=== PATIENT | male | born 1945 | race Hispanic/Latino ===

== ENCOUNTER → 2018-08-08 | Outpatient (CLI) | payer OTHER ==
[~2018-08-08] MED LIST: AEC81 PO; CHOL200013 PO; CLOP75TA14 PO; GABA-529 PO; GLIP5TAB11 PO; IOHEXOL-350 75 ML VIAL IV ONE; METF-444 PO; NAPR-1023 PO; SIMV20TA6 PO
== END | disposition home or self-care (01) ==
LOC: RAH 09:21
PROVIDERS: ATTEND Internal Medicine Cardiovascular Disease
DX: I65.23 Occlusion and stenosis of bilateral carotid arteries (principal)
CPT/HCPCS: 70498; Q9967

== ENCOUNTER 2018-09-13 05:55 | Inpatient (IN) | payer OTHER | END 2018-09-16 21:40 | disposition home or self-care (01) | LOC: DAHIP 05:55 → 2DH 09-15 19:27 → 2CH 10:06 | PROC: B3161ZZ Fluoroscopy of Right Internal Carotid Artery using Low Osmolar Contrast (ICD-10-PCS; principal; 2018-09-13) | PROC: 037K3DZ Dilation of Right Internal Carotid Artery with Intraluminal Device, Percutaneous Approach (ICD-10-PCS; 2018-09-13) | DX: I65.21 Occlusion and stenosis of right carotid artery (principal); I70.1 Atherosclerosis of renal artery ==

== ENCOUNTER → 2020-04-01 | Outpatient (CLI) | payer OTHER ==
[~2020-04-01] MED LIST changes: +ALBU8.5H8 IH; +CEFUROXIME SODIUM 1.5 GM VIAL IVP SCH; +CHOL100040 PO; -CHOL200013 PO; +CLON0.1T PO; -GLIP5TAB11 PO; -IOHEXOL-350 75 ML VIAL IV ONE; +LISI1TAB51 PO; -METF-444 PO; +SIMV-43 PO; -SIMV20TA6 PO
[2020-04-01 10:56] LABS: HEMATOCRIT 41.7 % (42-54); MEAN CORPUSCULAR HEMOGLOBIN 28.5 pg (27.0-33.0); MEAN CORPUSCULAR HGB CONC 31.4 g/dL (32.0-36.0); MEAN CORPUSCULAR VOLUME 90.8 fL (79-99); PLATELET COUNT (AUTO) 253 K/uL (130-400); RED BLOOD CELL COUNT(AUTO) 4.59 MIL/uL (4.50-6.20); RED CELL DISTRIBUTION WIDTH 12.6 % (11.0-15.5); WHITE BLOOD COUNT (AUTO) 6.3 K/uL (4.8-10.8)
[2020-04-01 11:09] LABS: INR 1.02 (0.85-1.15); PROTHROMBIN TIME 10.9 SEC (9.6-11.6)
[2020-04-01 11:10] LABS: CREATININE 1.5 mg/dL (0.5-1.5); POTASSIUM 4.9 mmol/L (3.5-5.1)
[2020-04-01 11:11] LABS: PARTIAL THROMBOPLASTIN TIME 26.6 SEC (26.3-35.5)
[2020-04-01 11:55] LABS: BASOPHILS % (MANUAL) 1 % (0-2); EOSINOPHILS % (MANUAL) 2 % (1-6); LYMPHOCYTES % (MANUAL) 33 % (22-44); MAN.DIFF COMMENT-IMPRESSION MANUAL DIFFERENTIAL; MONOCYTES % (MANUAL) 3 % (2-9); PLATELET MORPHOLOGY COMMENT ADEQUATE; SEGMENTED NEUTROPHILS % 61 % (40-70)
== END | disposition home or self-care (01) ==
LOC: EDSTATUS 03-25 12:00 → DAH 10:00 → EDSTATUS 04-03 12:00
PROVIDERS: ATTEND Thoracic Surgery (Cardiothoracic Vascular Surgery)
DX: Z01.812 Encounter for preprocedural laboratory examination (principal); I65.22 Occlusion and stenosis of left carotid artery; Z20.828 Contact with and (suspected) exposure to other viral communicable diseases
CPT/HCPCS: 36415; 71045; 80048; 85025; 85610; 85730; 93005; A6260; U0003

== ENCOUNTER → 2020-08-02 | Outpatient (CLI) | payer OTHER ==
[~2020-08-02] VITALS: Ht 175.3 cm; Wt 120.7 kg
[~2020-08-02] MED LIST changes: -CEFUROXIME SODIUM 1.5 GM VIAL IVP SCH; +REGADENOSON 0.4 MG/5 ML PF SYG IVP SCH
== END | disposition home or self-care (01) ==
LOC: SHCH 07:47
PROVIDERS: ATTEND Internal Medicine Cardiovascular Disease
DX: I25.10 Atherosclerotic heart disease of native coronary artery without angina pectoris (principal); I65.22 Occlusion and stenosis of left carotid artery
CPT/HCPCS: 78452; 93017; 96374; A9500 ×2

== ENCOUNTER 2020-11-25 05:55 | Inpatient (IN) | payer OTHER ==
[2020-11-21 12:06] LABS: BASOPHILS % (AUTO) 0.4 % (0.0-5.0); EOSINOPHILS % (AUTO) 1.5 % (0.0-8.0); HEMATOCRIT 43.1 % (42-54); LYMPHOCYTES % (AUTO) 20.1 % (21.0-51.0); MEAN CORPUSCULAR HEMOGLOBIN 28.9 pg (27.0-33.0); MEAN CORPUSCULAR VOLUME 90.4 fL (79-99); MONOCYTES % (AUTO) 7.7 % (3.0-13.0); PLATELET COUNT (AUTO) 232 K/uL (130-400); RED BLOOD CELL COUNT(AUTO) 4.77 MIL/uL (4.50-6.20); WHITE BLOOD COUNT (AUTO) 6.9 K/uL (4.8-10.8)
[2020-11-21 12:15] LABS: APPEARANCE,URINE Clear (CLEAR); BILIRUBIN,URINE Negative (NEGATIVE); COLOR,URINE Yellow (YELLOW); GLUCOSE, URINE (UA) TRACE mg/dL (NEGATIVE); KETONES,URINE Negative (NEGATIVE); LEUKOCYTE ESTERASE ,URINE Negative (NEGATIVE); NITRATE,URINE Negative (NEGATIVE); OCCULT BLOOD,URINE Negative (NEGATIVE); PH,URINE 5.5 (5.0-8.0); PROTEIN,URINE 300 mg/dL (NEGATIVE)
[2020-11-21 12:17] LABS: CREATININE 1.5 mg/dL (0.5-1.5); INR 0.95 (0.85-1.15); POTASSIUM 5.5 mmol/L (3.5-5.1); PROTHROMBIN TIME 10.4 SEC (9.6-11.6)
[2020-11-21 12:18] LABS: PARTIAL THROMBOPLASTIN TIME 26.2 SEC (26.3-35.5)
[2020-11-21 12:27] LABS: BACTERIA,URINE None Seen /HPF (None Seen); RBC,URINE 0-1 /HPF (0-1); SQUAMOUS EPITHELIAL CELL,UR 0-2 /HPF (0-2); WBC,URINE 0-1 /HPF (0-1)
[2020-11-22 14:17] VITALS: BP 185/77
[~2020-11-25] VITALS: Ht 172.7 cm; Wt 119.0 kg
[2020-11-25] VITALS (11 sets, daily range): BP systolic 151–190; BP diastolic 62–93
[~2020-11-25 05:55] MED LIST changes: +0.9% NACL 500ML IV.SOLN 500 ML IV SCH; +ACETAMINOPHEN 325 MG TAB PO PRN; -ALBU8.5H8 IH; -CHOL100040 PO; -GABA-529 PO; +GABA300C PO; +LIRA0.6P SQ; +LISI10TA24 PO; -LISI1TAB51 PO; +METO-408 PO; -NAPR-1023 PO; -REGADENOSON 0.4 MG/5 ML PF SYG IVP SCH; -SIMV-43 PO; +SIMV10TA97 PO; +UMEC1DIS IH
[2020-11-25] MEDS ORDERED: 0.9%NACL 1000ML 1,000 ML IV ONE (09:28)
[2020-11-25 09:41] LABS: CREATININE 1.1 mg/dL (0.5-1.5); POTASSIUM 5.6 mmol/L (3.5-5.1)
[2020-11-25] MEDS ORDERED: SODIUM BICARB 50MEQ 50ML VIAL 50 ML ONE (12:01)
[2020-11-25] MEDS ORDERED: MEPERIDINE-PF 25 MG/ML SYG ONE (12:01)
[2020-11-25] MEDS ORDERED: MIDAZOLAM HCL 1 MG/ML 2ML VIAL ONE (12:01)
[2020-11-25] MEDS ORDERED: IOHEXOL 350 MG/ML 100ML INFUS..BTL IV ONE (12:01)
[2020-11-25] MEDS ORDERED: NITROGLYCERIN 2 MG VIAL IV ONE (12:01)
[2020-11-25] MEDS ORDERED: HEPARIN 10,000 UNIT/10ML (1,000 UNIT/ML) VIAL ONE (12:01)
[2020-11-25] MEDS ORDERED: IOHEXOL-350 50ML VIAL IV ONE ×2 (12:01→12:58)
[2020-11-25] MEDS ORDERED: LIDOCAINE HCL 400MG/20ML VIAL ONE (12:02)
[2020-11-25] MEDS ORDERED: NICARDIPINE 25MG INJ IV ONE (12:25)
[2020-11-25] MEDS ORDERED: 0.9%NACL 1000ML 1,000 ML IV SCH (13:30)
[2020-11-25] MEDS ORDERED: GLUCAGON 1MG KIT 1 MG ML IM PRN ×2 (13:30→16:30)
[2020-11-25] MEDS ORDERED: DEXTROSE 50%-WATER 50 ML DISP.SYRIN IV PRN ×2 (13:30→16:30)
[2020-11-25] MEDS ORDERED: LIDOCAINE HCL-MPF 1% 2ML VIAL IV PRN (16:30)
[2020-11-25] MEDS ORDERED: INSULIN HUMULIN R 100 UNIT/ML 3ML SQ SCH (16:30)
[2020-11-25] MEDS ORDERED: POTASSIUM CHLORIDE 10% ELIXIR 20 MEQ/15 ML UDCUP PO PRN (16:30)
[2020-11-25] MEDS ORDERED: TRAMADOL HCL 50 MG TABLET PO PRN ×2 (16:30)
[2020-11-25] MEDS ORDERED: POTASSIUM CHLORIDE 20MEQ/100ML 100 ML IV PRN (16:30)
[2020-11-25] MEDS ORDERED: KCL 20 MEQ ERTAB PO PRN (16:30)
[2020-11-25] MEDS: INSULIN HUMULIN R 100 UNIT/ML 3ML SQ SCH ×2 (16:30→21:14)
[2020-11-25] MEDS ORDERED: HYDRALAZINE HCL 10 MG TABLET PO ONE (17:30)
[2020-11-25 17:39] LABS: ABG BASE EXCESS 1.2 mmol/L (-2.0-3.0); ABG HCO3 27.6 mmol/L (21.0-28.0); ABG PCO2 50 mmHg (35-48)
[2020-11-26 01:08] VITALS: BP 154/60
[2020-11-26 03:52] LABS: HEMATOCRIT 41.4 % (42-54); MEAN CORPUSCULAR HEMOGLOBIN 28.8 pg (27.0-33.0); MEAN CORPUSCULAR HGB CONC 32.1 g/dL (32.0-36.0); MEAN CORPUSCULAR VOLUME 89.6 fL (79-99); RED BLOOD CELL COUNT(AUTO) 4.62 MIL/uL (4.50-6.20); RED CELL DISTRIBUTION WIDTH 13.2 % (11.0-15.5); WHITE BLOOD COUNT (AUTO) 6.4 K/uL (4.8-10.8)
[2020-11-26 03:58] LABS: INR 0.98 (0.85-1.15); PROTHROMBIN TIME 10.7 SEC (9.6-11.6)
[2020-11-26 04:00] LABS: PARTIAL THROMBOPLASTIN TIME 27.3 SEC (26.3-35.5)
[2020-11-26 04:06] LABS: ALBUMIN 3.1 g/dL (3.5-5.0); BILIRUBIN,TOTAL 0.3 mg/dL (0.2-1.0); CREATININE 1.1 mg/dL (0.5-1.5); POTASSIUM 5.1 mmol/L (3.5-5.1); TOTAL PROTEIN, SERUM 6.8 g/dL (6.0-8.3)
[2020-11-26 04:14] LABS: HEMOGLOBIN A1C 8.2 % (4.0-6.0)
[2020-11-26 04:15] VITALS: BP 155/59
[2020-11-26] MEDS: INSULIN HUMULIN R 100 UNIT/ML 3ML SQ SCH ×4 (05:23→20:28)
[2020-11-26 08:00] VITALS: BP 186/69
[2020-11-26] MEDS: METOPROLOL SUCCINATE 50 MG TAB.SR.24H PO SCH (08:31)
[2020-11-26] MEDS: ASPIRIN 81 MG EC TAB PO SCH (08:31)
[2020-11-26] MEDS: SIMVASTATIN 10 MG TABLET PO SCH (08:32)
[2020-11-26] MEDS ORDERED: GABAPENTIN 300 MG CAPSULE PO SCH (09:00)
[2020-11-26] MEDS ORDERED: CLONIDINE HCL 0.1 MG TABLET PO SCH (09:00)
[2020-11-26] MEDS ORDERED: LISINOPRIL 10 MG TABLET PO SCH (09:00)
[2020-11-26 12:03] VITALS: BP 141/60
[2020-11-26 16:00] VITALS: BP 178/62
[2020-11-26 19:00] VITALS: BP 152/58
[2020-11-27] VITALS (12 sets, daily range): BP systolic 92–189; BP diastolic 35–74
[2020-11-27] MEDS: INSULIN HUMULIN R 100 UNIT/ML 3ML SQ SCH ×4 (05:40→20:17)
[2020-11-27] MEDS ORDERED: NOREPINEPHRINE BITARTRATE 8 MG in DEXTROSE 5%-WATER 250 ML IV PRN (07:00)
[2020-11-27] MEDS ORDERED: EPINEPHRINE PF 1MG AMP 10 MG in 0.9% NACL 250ML 240 ML IV PRN (07:00)
[2020-11-27] MEDS ORDERED: AMINOCAPROIC ACID 5,000MG VIAL 15,000 MG in 0.9% NACL 500ML IV.SOLN 420 ML IV PRN (07:00)
[2020-11-27] MEDS: METOPROLOL SUCCINATE 50 MG TAB.SR.24H PO SCH (07:10)
[2020-11-27] MEDS: ASPIRIN 81 MG EC TAB PO SCH (09:00)
[2020-11-27] MEDS: SIMVASTATIN 10 MG TABLET PO SCH (09:00)
[2020-11-27] MEDS ORDERED: NITROGLYCERIN 50MG/D5W 250ML 1 BOT ONE ×2 (09:59→17:55)
[2020-11-27] MEDS ORDERED: CEFAZOLIN SODIUM 1 GM VIAL IVP PRN (11:00)
[2020-11-27] MEDS ORDERED: HEPARIN 10,000 UNIT/10ML (1,000 UNIT/ML) VIAL ONE ×2 (14:03→14:31)
[2020-11-27] MEDS ORDERED: PROTAMINE SULFATE 10 MG/ML 25ML VIAL IV ONE (14:03)
[2020-11-27] MEDS ORDERED: ESMOLOL HCL 10 MG/ML 10 ML VIAL ONE (14:03)
[2020-11-27] MEDS ORDERED: LIDOCAINE PF 100MG/5ML (2%) SYRINGE 5ML ONE (14:03)
[2020-11-27] MEDS ORDERED: ROCURONIUM 10MG/1ML SYR 10 MG/ML ML ONE (14:04)
[2020-11-27] MEDS ORDERED: AMINOCAPROIC ACID 5,000MG VIAL ONE (14:04)
[2020-11-27] MEDS ORDERED: FENTANYL CITRATE PF 50 MCG/1 ML 20ML VIAL IJ ONE (14:04)
[2020-11-27] MEDS ORDERED: NOREPINEPHRINE BITARTRATE 1 MG/1 ML ML IV ONE (14:04)
[2020-11-27] MEDS ORDERED: SODIUM BICARB 50MEQ 50ML VIAL 150 ML ONE (14:04)
[2020-11-27] MEDS ORDERED: MIDAZOLAM HCL 1 MG/ML 2ML VIAL ONE (14:04)
[2020-11-27] MEDS ORDERED: EPINEPHRINE PF 1MG AMP ONE (14:04)
[2020-11-27] MEDS ORDERED: PROPOFOL 10 MG/ML 20ML VIAL IV ONE (14:04)
[2020-11-27] MEDS ORDERED: KETAMINE 50MG/ML SYRINGE 50 MG/ML DISP.SYRIN IV ONE ×2 (14:05→16:50)
[2020-11-27] MEDS ORDERED: CEFAZOLIN SODIUM 1 GM VIAL ONE ×3 (14:16→20:21)
[2020-11-27] MEDS ORDERED: PAPAVERINE HCL 30 MG/ML 2ML VIAL ONE (14:32)
[2020-11-27 14:50] LABS: ABG BASE EXCESS 3.4 mmol/L (-2.0-3.0); ABG HCO3 27.2 mmol/L (21.0-28.0); ABG OXYGEN SATURATION 99.2 % (95.0-99.0); ABG PCO2 38 mmHg (35-48)
[2020-11-27 15:50] LABS: ABG BASE EXCESS -1.3 mmol/L (-2.0-3.0); ABG HCO3 25.4 mmol/L (21.0-28.0); ABG OXYGEN SATURATION 77.9 % (95.0-99.0); ABG PCO2 51 mmHg (35-48)
[2020-11-27 16:43] LABS: ABG BASE EXCESS -5.4 mmol/L (-2.0-3.0); ABG HCO3 20.2 mmol/L (21.0-28.0); ABG OXYGEN SATURATION 99.2 % (95.0-99.0); ABG PCO2 40 mmHg (35-48)
[2020-11-27] MEDS ORDERED: 0.9%NACL 10ML VIAL IVP PRN (17:00)
[2020-11-27] MEDS ORDERED: AMINOCAPROIC ACID 5,000MG VIAL 15,000 MG in 0.9% NACL 250ML 250 ML IV SCH (17:00)
[2020-11-27] MEDS ORDERED: GLUCAGON 1MG KIT 1 MG ML IM PRN (17:00)
[2020-11-27] MEDS ORDERED: ACETAMINOPHEN 325 MG TAB PO PRN (17:00)
[2020-11-27] MEDS ORDERED: CALCIUM GLUC 1GM VIAL 1 GM in 0.9%NACL 50ML 50 ML IV PRN (17:00)
[2020-11-27] MEDS ORDERED: EPINEPHRINE PF 1MG AMP 10 MG in DEXTROSE 5%-WATER 250 ML IV PRN (17:00)
[2020-11-27] MEDS ORDERED: ACETAMINOPHEN 650 MG SUPPOSITORY RC PRN (17:00)
[2020-11-27] MEDS ORDERED: MORPHINE 4 MG SYG IV PRN (17:00)
[2020-11-27] MEDS ORDERED: PROPOFOL 1000 MG/100 ML 100 ML IV PRN (17:00)
[2020-11-27] MEDS ORDERED: TRAMADOL HCL 50 MG TABLET PO PRN ×2 (17:00)
[2020-11-27] MEDS ORDERED: NITROGLYCERIN 50MG/D5W 250ML 250 BOT IV SCH (17:00)
[2020-11-27] MEDS ORDERED: MORPHINE 2 MG SYG IV PRN (17:00)
[2020-11-27] MEDS ORDERED: ALBUMIN (HUMAN) 5% 250 ML IV PRN (17:00)
[2020-11-27] MEDS ORDERED: 0.9%NACL 1000ML 1,000 ML IV SCH (17:00)
[2020-11-27] MEDS ORDERED: POTASSIUM PHOS 15 mMOL+NS250ML 250 ML IV PRN (17:00)
[2020-11-27] MEDS ORDERED: DEXTROSE 50%-WATER 50 ML DISP.SYRIN IV PRN (17:00)
[2020-11-27] MEDS ORDERED: NOREPINEPHRINE 4MG/NS 250ML 250 ML IV PRN (17:00)
[2020-11-27] MEDS ORDERED: INSULIN REGULAR, HUMAN 3ML 100 UNIT in 0.9%NACL 100ML 99 ML IV SCH ×2 (17:00)
[2020-11-27] MEDS ORDERED: 0.9% NACL 500ML IV.SOLN 500 ML IV SCH (17:00)
[2020-11-27] MEDS ORDERED: POTASSIUM CHLORIDE 20MEQ/100ML 100 ML IV PRN (17:00)
[2020-11-27] MEDS ORDERED: ONDANSETRON 4MG INJ IV PRN (17:00)
[2020-11-27 17:19] LABS: ABG BASE EXCESS -2.5 mmol/L (-2.0-3.0); ABG HCO3 22.8 mmol/L (21.0-28.0); ABG OXYGEN SATURATION 95.9 % (95.0-99.0); ABG PCO2 41 mmHg (35-48)
[2020-11-27 17:30] LABS: HEMATOCRIT 35.7 % (42-54); MEAN CORPUSCULAR HEMOGLOBIN 29.1 pg (27.0-33.0); MEAN CORPUSCULAR HGB CONC 32.8 g/dL (32.0-36.0); MEAN CORPUSCULAR VOLUME 88.8 fL (79-99); RED BLOOD CELL COUNT(AUTO) 4.02 MIL/uL (4.50-6.20); RED CELL DISTRIBUTION WIDTH 12.7 % (11.0-15.5)
[2020-11-27] MEDS: SODIUM BICARB 50MEQ 50ML VIAL IV PRN ×4 (17:35→23:11)
[2020-11-27 17:43] LABS: CREATININE 1.2 mg/dL (0.5-1.5); INR 1.1 (0.85-1.15); MAGNESIUM 1.4 mg/dL (1.80-2.40); PHOSPHORUS 4.7 mg/dL (2.5-4.9); POTASSIUM 4.2 mmol/L (3.5-5.1); PROTHROMBIN TIME 11.9 SEC (9.6-11.6)
[2020-11-27 17:45] LABS: PARTIAL THROMBOPLASTIN TIME 24.2 SEC (26.3-35.5)
[2020-11-27] MEDS ORDERED: MORPHINE 2 MG SYG ONE (17:54)
[2020-11-27 18:28] LABS: ABG BASE EXCESS -3.1 mmol/L (-2.0-3.0); ABG HCO3 22.7 mmol/L (21.0-28.0); ABG OXYGEN SATURATION 94.1 % (95.0-99.0); ABG PCO2 43 mmHg (35-48)
[2020-11-27] MEDS: MAGNESIUM 2GM PREMIX 50ML 50 ML IV PRN ×2 (18:39→19:52)
[2020-11-27 19:32] LABS: ABG BASE EXCESS -1.4 mmol/L (-2.0-3.0); ABG HCO3 23.8 mmol/L (21.0-28.0); ABG OXYGEN SATURATION 94.5 % (95.0-99.0); ABG PCO2 42 mmHg (35-48)
[2020-11-27] MEDS ORDERED: MAGNESIUM 2GM PREMIX 50ML 50 ML IV ONE (19:41)
[2020-11-27] MEDS ORDERED: SODIUM BICARB 50MEQ 50ML VIAL 50 ML ONE (19:41)
[2020-11-27] MEDS ORDERED: 0.9%NACL 1000ML 1,000 ML IV ONE (19:42)
[2020-11-27] MEDS ORDERED: ALBUMIN (HUMAN) 5% 250 ML IV ONE (19:43)
[2020-11-27] MEDS ORDERED: FAMOTIDINE 20MG VIAL IV ONE (19:44)
[2020-11-27] MEDS ORDERED: ONDANSETRON 4MG INJ ONE (19:45)
[2020-11-27] MEDS: FAMOTIDINE 20MG VIAL IV SCH (19:54)
[2020-11-27] MEDS ORDERED: PHARMACY COMMUNICATION MISC SCH ×2 (20:30→21:00)
[2020-11-27 20:49] LABS: ABG HCO3 27.4 mmol/L (21.0-28.0); ABG OXYGEN SATURATION 96.4 % (95.0-99.0); ABG PCO2 46 mmHg (35-48)
[2020-11-27] MEDS ORDERED: ACETAMINOPHEN 325 MG TAB ONE (21:18)
[2020-11-27] MEDS: ACETAMINOPHEN 325 MG TAB PO PRN (21:40)
[2020-11-27] MEDS: CEFAZOLIN SODIUM 1 GM VIAL IV SCH (22:05)
[2020-11-27 22:07] LABS: ABG BASE EXCESS 0.8 mmol/L (-2.0-3.0); ABG HCO3 26.2 mmol/L (21.0-28.0); ABG OXYGEN SATURATION 97.4 % (95.0-99.0); ABG PCO2 45 mmHg (35-48)
[2020-11-27 23:09] LABS: ABG BASE EXCESS -0.9 mmol/L (-2.0-3.0); ABG HCO3 25.3 mmol/L (21.0-28.0); ABG OXYGEN SATURATION 97.4 % (95.0-99.0); ABG PCO2 48 mmHg (35-48)
[2020-11-28] VITALS (21 sets, daily range): BP systolic 115–214; BP diastolic 37–127
[2020-11-28 01:05] LABS: ABG BASE EXCESS 3.2 mmol/L (-2.0-3.0); ABG OXYGEN SATURATION 94.1 % (95.0-99.0); ABG PCO2 49 mmHg (35-48)
[2020-11-28] MEDS: INSULIN HUMULIN R 100 UNIT/ML 3ML SQ SCH ×4 (03:38→20:08)
[2020-11-28 03:40] LABS: ABG HCO3 29.9 mmol/L (21.0-28.0); ABG PCO2 51 mmHg (35-48)
[2020-11-28 03:51] LABS: HEMATOCRIT 35.3 % (42-54); MEAN CORPUSCULAR HEMOGLOBIN 28.5 pg (27.0-33.0); MEAN CORPUSCULAR HGB CONC 32.6 g/dL (32.0-36.0); MEAN CORPUSCULAR VOLUME 87.6 fL (79-99); RED BLOOD CELL COUNT(AUTO) 4.03 MIL/uL (4.50-6.20); WHITE BLOOD COUNT (AUTO) 12.6 K/uL (4.8-10.8)
[2020-11-28] MEDS: ACETAMINOPHEN 325 MG TAB PO PRN ×2 (03:54→22:56)
[2020-11-28 04:00] LABS: CREATININE 1.5 mg/dL (0.5-1.5); MAGNESIUM 2.3 mg/dL (1.80-2.40); PHOSPHORUS 4.2 mg/dL (2.5-4.9); POTASSIUM 4.2 mmol/L (3.5-5.1)
[2020-11-28 04:06] LABS: INR 1.05 (0.85-1.15); PROTHROMBIN TIME 11.4 SEC (9.6-11.6)
[2020-11-28 04:08] LABS: PARTIAL THROMBOPLASTIN TIME 24.2 SEC (26.3-35.5)
[2020-11-28 05:06] LABS: ABG BASE EXCESS 6.8 mmol/L (-2.0-3.0); ABG HCO3 33.2 mmol/L (21.0-28.0); ABG OXYGEN SATURATION 93.6 % (95.0-99.0); ABG PCO2 56 mmHg (35-48)
[2020-11-28] MEDS: CEFAZOLIN SODIUM 1 GM VIAL IV SCH ×2 (05:19→16:56)
[2020-11-28 08:03] LABS: ABG BASE EXCESS 5.9 mmol/L (-2.0-3.0); ABG HCO3 32.1 mmol/L (21.0-28.0); ABG OXYGEN SATURATION 94.5 % (95.0-99.0); ABG PCO2 52 mmHg (35-48)
[2020-11-28] MEDS: FUROSEMIDE 20MG VIAL IV SCH ×2 (09:17→20:48)
[2020-11-28] MEDS: SIMVASTATIN 10 MG TABLET PO SCH (09:17)
[2020-11-28] MEDS: FAMOTIDINE 20MG VIAL IV SCH ×2 (09:17→20:48)
[2020-11-28] MEDS: ASPIRIN 81 MG EC TAB PO SCH (09:17)
[2020-11-28 09:35] LABS: ABG HCO3 32.4 mmol/L (21.0-28.0); ABG OXYGEN SATURATION 93.4 % (95.0-99.0); ABG PCO2 55 mmHg (35-48)
[2020-11-28] MEDS ORDERED: CEFAZOLIN SODIUM 1 GM VIAL ONE (16:54)
[2020-11-29] VITALS (26 sets, daily range): BP systolic 93–201; BP diastolic 41–95
[2020-11-29 03:58] LABS: HEMATOCRIT 30.8 % (42-54); MEAN CORPUSCULAR HEMOGLOBIN 28.7 pg (27.0-33.0); MEAN CORPUSCULAR HGB CONC 31.8 g/dL (32.0-36.0); MEAN CORPUSCULAR VOLUME 90.3 fL (79-99); RED BLOOD CELL COUNT(AUTO) 3.41 MIL/uL (4.50-6.20); RED CELL DISTRIBUTION WIDTH 13.1 % (11.0-15.5)
[2020-11-29 04:07] LABS: CREATININE 1.3 mg/dL (0.5-1.5)
[2020-11-29] MEDS: INSULIN HUMULIN R 100 UNIT/ML 3ML SQ SCH ×4 (06:30→20:09)
[2020-11-29] MEDS: FAMOTIDINE 20MG VIAL IV SCH ×2 (08:34→20:08)
[2020-11-29] MEDS: METOPROLOL TARTRATE 25 MG TAB PO SCH ×2 (08:34→20:08)
[2020-11-29] MEDS: ASPIRIN 81 MG EC TAB PO SCH (08:34)
[2020-11-29] MEDS: SIMVASTATIN 10 MG TABLET PO SCH (08:34)
[2020-11-29] MEDS: FUROSEMIDE 20 MG TABLET PO SCH ×2 (08:35→18:10)
[2020-11-29] MEDS: ACETAMINOPHEN 325 MG TAB PO PRN (23:18)
[2020-11-30] VITALS (11 sets, daily range): BP systolic 110–146; BP diastolic 53–66
[2020-11-30 04:12] LABS: HEMATOCRIT 29.7 % (42-54); MEAN CORPUSCULAR HEMOGLOBIN 28.6 pg (27.0-33.0); MEAN CORPUSCULAR VOLUME 89.5 fL (79-99); RED BLOOD CELL COUNT(AUTO) 3.32 MIL/uL (4.50-6.20); RED CELL DISTRIBUTION WIDTH 12.7 % (11.0-15.5); WHITE BLOOD COUNT (AUTO) 9.6 K/uL (4.8-10.8)
[2020-11-30 04:28] LABS: CREATININE 1.3 mg/dL (0.5-1.5); POTASSIUM 3.7 mmol/L (3.5-5.1)
[2020-11-30] MEDS: INSULIN HUMULIN R 100 UNIT/ML 3ML SQ SCH ×4 (05:51→21:02)
[2020-11-30] MEDS: METOPROLOL TARTRATE 25 MG TAB PO SCH ×2 (08:41→21:01)
[2020-11-30] MEDS: SIMVASTATIN 10 MG TABLET PO SCH (08:41)
[2020-11-30] MEDS: ENOXAPARIN SODIUM 30 MG/0.3 ML SQ SCH (08:42)
[2020-11-30] MEDS: FUROSEMIDE 20 MG TABLET PO SCH ×2 (08:42→17:27)
[2020-11-30] MEDS: FAMOTIDINE 20MG VIAL IV SCH ×2 (08:42→21:00)
[2020-11-30] MEDS: ASPIRIN 81 MG EC TAB PO SCH (08:42)
[2020-12-01 03:00] VITALS: BP 130/60
[2020-12-01 03:35] LABS: HEMATOCRIT 30.8 % (42-54); MEAN CORPUSCULAR HEMOGLOBIN 28.6 pg (27.0-33.0); MEAN CORPUSCULAR HGB CONC 32.1 g/dL (32.0-36.0); RED BLOOD CELL COUNT(AUTO) 3.46 MIL/uL (4.50-6.20); RED CELL DISTRIBUTION WIDTH 12.7 % (11.0-15.5); WHITE BLOOD COUNT (AUTO) 9.2 K/uL (4.8-10.8)
[2020-12-01 03:59] LABS: CREATININE 1.4 mg/dL (0.5-1.5)
[2020-12-01] MEDS: INSULIN HUMULIN R 100 UNIT/ML 3ML SQ SCH ×4 (06:18→20:32)
[2020-12-01 08:08] VITALS: BP 157/77
[2020-12-01] MEDS: SIMVASTATIN 10 MG TABLET PO SCH (09:36)
[2020-12-01] MEDS: METOPROLOL TARTRATE 25 MG TAB PO SCH ×2 (09:37→20:39)
[2020-12-01] MEDS: FUROSEMIDE 20 MG TABLET PO SCH ×2 (09:37→18:49)
[2020-12-01] MEDS: ASPIRIN 81 MG EC TAB PO SCH (09:37)
[2020-12-01] MEDS: FAMOTIDINE 20MG VIAL IV SCH ×2 (09:37→20:39)
[2020-12-01] MEDS: ENOXAPARIN SODIUM 30 MG/0.3 ML SQ SCH (09:38)
[2020-12-01 12:21] VITALS: BP 119/32
[2020-12-01 17:08] VITALS: BP 134/58
[2020-12-01 19:00] VITALS: BP 139/67
[2020-12-01 23:00] VITALS: BP_SYST 142; BP_SYST 167; BP_DIAS 70; BP_DIAS 72
[2020-12-02 03:00] VITALS: BP 156/79
[2020-12-02] MEDS: INSULIN HUMULIN R 100 UNIT/ML 3ML SQ SCH ×4 (05:10→21:03)
[2020-12-02] MEDS: SIMVASTATIN 10 MG TABLET PO SCH (07:46)
[2020-12-02] MEDS: FAMOTIDINE 20MG TAB PO SCH ×2 (07:46→20:49)
[2020-12-02] MEDS: METOPROLOL TARTRATE 25 MG TAB PO SCH ×2 (07:46→20:50)
[2020-12-02] MEDS: ENOXAPARIN SODIUM 30 MG/0.3 ML SQ SCH (07:46)
[2020-12-02] MEDS: ASPIRIN 81 MG EC TAB PO SCH (07:46)
[2020-12-02] MEDS: FUROSEMIDE 20 MG TABLET PO SCH ×2 (07:47→16:46)
[2020-12-02 08:30] VITALS: BP 166/75
[2020-12-02 12:16] VITALS: BP 139/69
[2020-12-02 16:59] VITALS: BP 151/64
[2020-12-02 19:27] VITALS: BP 170/63
[2020-12-02 23:47] VITALS: BP 176/77
[2020-12-03 04:05] VITALS: BP 154/56
[2020-12-03] MEDS: INSULIN HUMULIN R 100 UNIT/ML 3ML SQ SCH ×4 (07:16→21:24)
[2020-12-03] MEDS: METOPROLOL TARTRATE 25 MG TAB PO SCH ×2 (07:19→20:57)
[2020-12-03] MEDS: FAMOTIDINE 20MG TAB PO SCH ×2 (07:19→20:57)
[2020-12-03] MEDS: ASPIRIN 81 MG EC TAB PO SCH (07:19)
[2020-12-03] MEDS: FUROSEMIDE 20 MG TABLET PO SCH ×2 (07:19→16:13)
[2020-12-03] MEDS: ENOXAPARIN SODIUM 30 MG/0.3 ML SQ SCH (07:20)
[2020-12-03] MEDS: SIMVASTATIN 10 MG TABLET PO SCH (07:24)
[2020-12-03 07:30] VITALS: BP 136/65
[2020-12-03 11:00] VITALS: BP 135/62
[2020-12-03 16:00] VITALS: BP 149/54
[2020-12-03 19:38] VITALS: BP 177/71
[2020-12-03 23:31] VITALS: BP 167/63
[2020-12-04 04:18] VITALS: BP 132/54
[2020-12-04] MEDS: INSULIN HUMULIN R 100 UNIT/ML 3ML SQ SCH ×2 (07:30→11:21)
[2020-12-04 07:49] VITALS: BP 174/89
[2020-12-04] MEDS: FUROSEMIDE 20 MG TABLET PO SCH (08:10)
[2020-12-04] MEDS: METOPROLOL TARTRATE 25 MG TAB PO SCH (08:10)
[2020-12-04] MEDS: ASPIRIN 81 MG EC TAB PO SCH (08:10)
[2020-12-04] MEDS: ENOXAPARIN SODIUM 30 MG/0.3 ML SQ SCH (08:11)
[2020-12-04] MEDS: FAMOTIDINE 20MG TAB PO SCH (08:11)
[2020-12-04] MEDS ORDERED: SIMVASTATIN 20 MG TABLET PO SCH (09:00)
[2020-12-04 11:20] VITALS: BP 146/67
== END 2020-12-04 15:20 | DRG 233 ==
LOC: DAH 05:55 → DAHIP 05:56 → 4CH 18:18 → 2CH 11-27 14:40 → 2DH 11-30 14:36
PROVIDERS: ADMIT Thoracic Surgery (Cardiothoracic Vascular Surgery); ATTEND Thoracic Surgery (Cardiothoracic Vascular Surgery)
PROC: 4A023N7 Measurement of Cardiac Sampling and Pressure, Left Heart, Percutaneous Approach (ICD-10-PCS; 2020-11-25)
PROC: B2111ZZ Fluoroscopy of Multiple Coronary Arteries using Low Osmolar Contrast (ICD-10-PCS; 2020-11-25)
PROC: B3151ZZ Fluoroscopy of Bilateral Common Carotid Arteries using Low Osmolar Contrast (ICD-10-PCS; 2020-11-25)
PROC: B3181ZZ Fluoroscopy of Bilateral Internal Carotid Arteries using Low Osmolar Contrast (ICD-10-PCS; 2020-11-25)
PROC: 06BQ4ZZ Excision of Left Saphenous Vein, Percutaneous Endoscopic Approach (ICD-10-PCS; 2020-11-27)
PROC: 02100Z9 Bypass Coronary Artery, One Artery from Left Internal Mammary, Open Approach (ICD-10-PCS; principal; 2020-11-27 14:35)
PROC: 021109W Bypass Coronary Artery, Two Arteries from Aorta with Autologous Venous Tissue, Open Approach (ICD-10-PCS; 2020-11-27 14:35)
DX: I25.10 Atherosclerotic heart disease of native coronary artery without angina pectoris (principal); J95.1 Acute pulmonary insufficiency following thoracic surgery; I50.32 Chronic diastolic (congestive) heart failure; E11.51 Type 2 diabetes mellitus with diabetic peripheral angiopathy without gangrene; E78.5 Hyperlipidemia, unspecified; I45.10 Unspecified right bundle-branch block; I70.1 Atherosclerosis of renal artery; E78.00 Pure hypercholesterolemia, unspecified; I48.91 Unspecified atrial fibrillation; E87.70 Fluid overload, unspecified; Z98.62 Peripheral vascular angioplasty status; Z79.82 Long term (current) use of aspirin; Z79.899 Other long term (current) drug therapy; Z20.822 Contact with and (suspected) exposure to COVID-19; Y83.8 Other surgical procedures as the cause of abnormal reaction of the patient, or of later complication, without mention of misadventure at the time of the procedure; Y71.8 Miscellaneous cardiovascular devices associated with adverse incidents, not elsewhere classified; Y92.89 Other specified places as the place of occurrence of the external cause; I11.0 Hypertensive heart disease with heart failure
CPT/HCPCS: 36223; 36415; 36600; 71045; 80048; 80053; 80061; 81001; 82435; 82803; 82947; 82948; 83036; 83605; 83735; 83880; 84100; 84132; 84295; 85018; 85025; 85027; 85347; 85610; 85730; 86850; 86900; 86901; 86923; 87635; 93005; 93306; 93356; 93458; 93880; 94002; 94003; 94010; 94150; 97039; 99156; 99157; A4357; A4606; A7048; C1760; C1769; C1894; G0378; J0171; J0610; J0690; J1644; J1650; J1815; J1940; J2001; J2175; J2250; J2405; J2440; J2704; J2720; J3010; J3475; J3480; J3490; J7030; J7040; P9045; Q9967